=== PATIENT | male | born 1995 | race Caucasian/White ===

== ENCOUNTER 2023-06-07 12:58 | Emergency (ER) | payer MEDICAID ==
[~2023-06-07] VITALS: Ht 172.7 cm; Wt 77.1 kg
[2023-06-07 13:05] VITALS: BP 115/68; PULSE 84; RESP 17; TEMP 97.4; O2SAT 99
--- NOTE | 2023-06-07 13:21 | NUR ---
PATIENT BROUGHT IN BY PD
[2023-06-07 13:40] VITALS: BP 111/65; PULSE 74; RESP 17; O2SAT 98
--- NOTE | 2023-06-07 13:41 | NUR ---
PATIENT [facility] [employer] DEPT. PATIENT EXAMINED BY DR. DOMÍNGUEZ. PATIENT MEDICALLY CLEARED AND RELEASED IN CUSTODY IN STABLE CONDITION. ORIGINAL PRE-BOOK FORM GIVEN TO OFFICER.
== END 2023-06-07 13:41 ==
LOC: MED 12:58
CPT/HCPCS: 99283